=== PATIENT | female | born 1970 | race Caucasian/White ===

== ENCOUNTER 2016-07-06 22:17 | Emergency (ER) | payer OTHER ==
[2016-07-06 22:45] LABS: BASO % 0.3 % (0.1-1.2); EOS # 0.2 10_X3_uL (0.0-0.4); EOS % 2.9 % (0.7-5.8); GRAN % 55.4 % (34.0-71.1); HEMATOCRIT 42.5 % (34-45); HEMOGLOBIN 13.4 g/dL (11.2-15.7); LYMPH # 2.6 10_X3_uL (1.2-3.7); LYMPH % 35.4 % (19.3-51.7); MEAN CORPUSCULAR HEMOGLOBIN 30.5 pg (27.0-33.0); MEAN CORPUSCULAR HGB CONC 31.5 g/dL (32.0-36.0); MEAN CORPUSCULAR VOLUME 96.8 fL (79-95); MEAN PLATELET VOLUME 10.5 fl (7.5-11.5); MONO # 0.4 10_X3_uL (0.2-0.9); PLATELET COUNT 218 x10_3/uL (182-369); RED BLOOD COUNT 4.39 x10_6/uL (3.9-5.2); RED CELL DISTRIBUTION WIDTH 13.6 % (11.7-14.4); WHITE BLOOD COUNT 7.2 x10_3/uL (4.0-10.0)
[2016-07-06 22:58] LABS: ALBUMIN 4.4 gm/dL (3.4-5.0); ALKALINE PHOSPHATASE 95 U/L (50-136); ALT/SGPT 10 U/L (3.5-33.9); AST/SGOT 16 U/L (7.04-26.96); BILIRUBIN,TOTAL 0.23 mg/dL (0.0-1.0); BLOOD UREA NITROGEN 10 mg/dL (7-18); CALCIUM 9.2 mg/dL (8.7-10.7); CARBON DIOXIDE 32 mmol/L (21-32); CREATINE KINASE 137 U/L (21-215); CREATININE 0.5 mg/dL (0.6-1.3); GLUCOSE,RANDOM 113 mg/dL (70-99); POTASSIUM 4.6 mmol/L (3.5-5.1); SODIUM 139 mmol/L (136-145); TOTAL PROTEIN 7.8 gm/dL (6.4-8.2)
== END 2016-07-07 04:55 | disposition left against medical advice (07) ==
LOC: ER 22:17
PROVIDERS: Emergency Medicine
DX: R07.9 Chest pain, unspecified (principal); J44.9 Chronic obstructive pulmonary disease, unspecified; F17.210 Nicotine dependence, cigarettes, uncomplicated; Z88.1 Allergy status to other antibiotic agents
CPT/HCPCS: 36415; 71020; 80053; 82550; 82553; 85025; 93005; 99285-25